=== PATIENT | male | born 1930 | race Caucasian/White ===

== ENCOUNTER → 2019-08-21 | Outpatient (CLI) | payer MEDICARE, OTHER ==
[~2019-08-21] MED LIST: REGADENOSON 0.4 MG/5 ML SYRINGE ONE
== END | disposition home or self-care (01) ==
LOC: CVU 06:47
PROVIDERS: ATTEND Internal Medicine
DX: I08.3 Combined rheumatic disorders of mitral, aortic and tricuspid valves (principal); I21.19 ST elevation (STEMI) myocardial infarction involving other coronary artery of inferior wall
CPT/HCPCS: 78452; 93017; 93306; 93356; A9502; J2785

== ENCOUNTER 2019-09-14 07:56 | Day surgery (SDC) | payer MEDICARE, OTHER ==
[~2019-09-14] VITALS: Ht 177.8 cm; Wt 88.6 kg
[2019-09-14] MEDS ORDERED: SODIUM CHLORIDE 0.9% 1,000 ML IV SCH ×2 (08:22→09:42)
[2019-09-14 08:24] VITALS: BP 155/68
[2019-09-14] MEDS ORDERED: LEVO75TA5 PO (08:30)
[2019-09-14] MEDS ORDERED: HEPARIN 1,000 UNITS/ML, 10ML ONE (08:51)
[2019-09-14] MEDS ORDERED: FENTANYL PF 100 MCG/2ML ONE (08:51)
[2019-09-14] MEDS ORDERED: MIDAZOLAM 1 MG/ML, 5ML ONE (08:51)
[2019-09-14] MEDS ORDERED: BIVALIRUDIN 250 MG ONE (08:51)
[2019-09-14] MEDS ORDERED: VERAPAMIL 2.5 MG/ML, 2ML ONE (08:51)
[2019-09-14] MEDS ORDERED: TICAGRELOR 90 MG TABLET ONE (08:51)
[2019-09-14] MEDS ORDERED: LIDOCAINE-MPF 1%, 5ML ONE (08:51)
[2019-09-14 08:57] LABS: ANION GAP 7 mmol/L (5-15); CALCIUM 8.7 mg/dL (8.5-10.1); CHLORIDE 111 mmol/L (98-107); CREATININE 1.09 mg/dL (0.7-1.3)
== END 2019-09-14 11:08 | disposition home or self-care (01) ==
LOC: CACL 07:56
PROVIDERS: ATTEND Internal Medicine Cardiovascular Disease
DX: R07.89 Other chest pain (principal); I25.119 Atherosclerotic heart disease of native coronary artery with unspecified angina pectoris; F17.210 Nicotine dependence, cigarettes, uncomplicated; Z79.890 Hormone replacement therapy; Z79.899 Other long term (current) drug therapy
CPT/HCPCS: 36415; 80048; 93458; 93571; 99156; C1769; C1894; J1644; J2250; J3010; Q9967; J0583